=== PATIENT | female | born 2000 | race Caucasian/White ===

== ENCOUNTER 2023-01-02 08:00 | Outpatient (CLI) | payer OTHER | END 2023-01-02 23:59 | disposition home or self-care (01) | LOC: LAB.N 08:00 | PROVIDERS: ATTEND Registered Nurse | DX: R82.79 Other abnormal findings on microbiological examination of urine (principal) | CPT/HCPCS: 87086 ==

== ENCOUNTER 2023-01-04 12:32 | Outpatient (CLI) | payer OTHER ==
--- NOTE | 2023-01-04 16:45 | XRAY Report ---
PROCEDURE: Lumbar Spine 2 View INDICATIONS: OTHER LOW BACK PAIN TECHNIQUE: 4 views of the lumbar spine were acquired. COMPARISON: None. FINDINGS: Bones: 5 [id number] vertebrae are present. 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 There is normal bony alignment. No vertebral body compression fractures. No suspicious bony lesions. Soft tissues: Overlying bowel gas pattern is normal. No suspicious soft tissue calcifications. IMPRESSION: 1. 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 This could be further assessed with MRI, if clinical ly indicated. 2. No acute fracture. No osseous lesion. If symptoms and/or clinical suspicion for pathology continue , further assessment with repeat plain films, or advanced imaging (e.g., CT, MRI, or bone scan) is re commended for further assessment. Reviewed by: Michel Watson MD on 01/04/2023 4:43 PM PDT Approved by: Michel Watson MD on 01/04/2023 4:43 PM PDT Station ID: [id number]
== END 2023-01-04 12:33 | disposition home or self-care (01) ==
LOC: DI.N 12:32
PROVIDERS: ATTEND Registered Nurse
DX: M54.59 Other low back pain (principal)